=== PATIENT | female | born 1950 | race Native Hawaiian/Other Pacific Islander ===

== ENCOUNTER 2017-01-17 03:20 | Emergency (ER) | payer OTHER ==
[~2017-01-17] VITALS: Ht 162.6 cm; Wt 132.5 kg
[2017-01-17] MEDS ORDERED: VALSARTAN320 MG PO (03:33)
[2017-01-17] MEDS ORDERED: ARIPIPRAZOLE5 MG PO (03:34)
[2017-01-17] MEDS ORDERED: ESOMEPRAZOLE MA40 MG PO (03:34)
[2017-01-17] MEDS ORDERED: MOBIC15 MG PO (03:35)
[2017-01-17] MEDS ORDERED: ALL DAY ALLERGY10 M1 OR (03:35)
[2017-01-17] MEDS ORDERED: MACRODANTIN100 MG OR (03:35)
[2017-01-17] MEDS ORDERED: MECLIZINE25 MG OR (03:36)
[2017-01-17] MEDS ORDERED: ARMOUR THYROID120 MG PO (03:37)
[2017-01-17] MEDS ORDERED: DULOXETINE HCL60 MG PO (03:38)
[2017-01-17] MEDS ORDERED: MONTELUKAST SOD10 MG PO (03:38)
[2017-01-17] MEDS ORDERED: GEMFIBROZIL PO (03:40)
[2017-01-17 03:54] LABS: PLATELET COUNT 321 K/uL (152-353)
[2017-01-17 04:05] LABS: POTASSIUM 4.1 mmol/L (3.6-5.2); SODIUM 132 mmol/L (136-145)
[2017-01-17 05:20] VITALS: BP 115/67; TEMP 99.1
== END 2017-01-17 05:23 | disposition home or self-care (01) ==
LOC: ED 03:20
DX: J02.0 Streptococcal pharyngitis (principal)
CPT/HCPCS: 36415; 80053; 85027; 87804; 87880; 96365; 96375; 99284; J0696; J1885

== ENCOUNTER 2017-01-19 18:31 | Emergency (ER) | payer OTHER ==
[~2017-01-19] VITALS: Ht 162.6 cm; Wt 132.5 kg
[~2017-01-19 18:31] MED LIST: ALL DAY ALLERGY10 M1 OR; ARIPIPRAZOLE5 MG PO; ARMOUR THYROID120 MG PO; DULOXETINE HCL60 MG PO; ESOMEPRAZOLE MA40 MG PO; GEMFIBROZIL PO; MACRODANTIN100 MG OR; MECLIZINE25 MG OR; MOBIC15 MG PO; MONTELUKAST SOD10 MG PO; VALSARTAN320 MG PO
[2017-01-19 20:02] LABS: PLATELET COUNT 387 K/uL (152-353); POTASSIUM 4.1 mmol/L (3.6-5.2)
[2017-01-19 23:42] VITALS: BP 147/71; TEMP 98.8
== END 2017-01-19 23:46 | disposition home or self-care (01) ==
LOC: ED 18:31
PROVIDERS: Specialist
DX: B34.9 Viral infection, unspecified (principal); J40 Bronchitis, not specified as acute or chronic; B96.89 Other specified bacterial agents as the cause of diseases classified elsewhere
CPT/HCPCS: 36415; 80053; 81000; 85027; 87804; 94664; 96361; 96365; 96374; 99284; J1100; J1885

== ENCOUNTER 2017-04-04 18:41 | Outpatient (CLI) | payer OTHER | END 2017-04-04 22:01 | disposition home or self-care (01) | LOC: LAB 18:41 | DX: R19.7 Diarrhea, unspecified (principal) | CPT/HCPCS: 82272; 87015; 87045; 87205; 87324; 87328; 87329; 87449; 87899 ==